=== PATIENT | female | born 1970 | race Caucasian/White ===

== ENCOUNTER 2019-12-01 08:45 | Day surgery (SDC) | payer BC ==
[~2019-12-01] VITALS: Ht 154.9 cm; Wt 67.1 kg
[2019-12-01] MEDS ORDERED: fentaNYL CITRATE/PF 100 MCG/2 ML AMP IVP PRN ×2 (09:00)
[2019-12-01] MEDS ORDERED: METOCLOPRAMIDE HCL 10 MG/2 ML VIAL IVP PRN (09:00)
[2019-12-01 09:36] LABS: HCG,QUAL RESULT NEGATIVE (NEGATIVE)
[2019-12-01] MEDS ORDERED: LABETALOL 100 MG/ 20ML VIAL IVP ONE (11:30)
[2019-12-01] MEDS ORDERED: SEVOFLURANE 15 MIN GAS INH ONE (11:30)
[2019-12-01] MEDS ORDERED: WATER FOR IRRIGATION,STERILE 1,000 ML IRRIG.SOLN IR ONE (11:30)
[2019-12-01] MEDS ORDERED: MIDAZOLAM HCL 5 MG/5 ML VIAL IVP ONE (11:30)
[2019-12-01] MEDS ORDERED: ROCURONIUM BROMIDE 10 MG/ML (ZEMURON) IV ONE (11:30)
[2019-12-01] MEDS ORDERED: KETOROLAC TROMETHAMINE 30 MG VIAL IVP ONE (11:30)
[2019-12-01] MEDS ORDERED: PROPOFOL 200MG/ 20ML VIAL (DIPRIVAN) IV ONE (11:30)
[2019-12-01] MEDS ORDERED: BUPIVACAINE /EPINEPHRINE/PF 0.25% 30 ML VIAL INJ ONE (11:30)
[2019-12-01] MEDS ORDERED: LR 1,000 ML IV.SOLN IV ONE (11:30)
[2019-12-01] MEDS ORDERED: ONDANSETRON HCL 4 MG/2 ML VIAL IVP ONE (11:30)
[2019-12-01] MEDS ORDERED: NS 1000 ML IV.SOLN IV ONE (11:30)
[2019-12-01] MEDS ORDERED: fentaNYL CITRATE/PF 100 MCG/2 ML AMP IVP ONE (11:30)
[2019-12-01] MEDS ORDERED: HYDROcodone/ACETAMIN 5-325 MG TAB (NORCO/ VICODIN) PO ONE (14:15)
[2019-12-01] MEDS ORDERED: HYDROcodone/ACETAMIN 5-325 MG TAB (NORCO/ VICODIN) ONE (14:33)
[2019-12-01 16:19] VITALS: BP_SYST 157
== END 2019-12-01 16:05 | disposition home or self-care (01) ==
LOC: SMU 08:45 → SDS 08:45
PROVIDERS: ATTEND Obstetrics & Gynecology
DX: D27.0 Benign neoplasm of right ovary (principal)
CPT/HCPCS: 58661; 84703; C1727; J1885; J2250; J2405; J2704; J3010; J3490 ×2; J7030; J7120